=== PATIENT | female | born 1950 | race African-American/Black ===

== ENCOUNTER 2019-03-28 09:21 | Emergency (ER) | payer BC, OTHER ==
[~2019-03-28] VITALS: Ht 154.9 cm; Wt 59.0 kg
[2019-03-28 10:00] VITALS: BP 97/63
== END 2019-03-28 10:20 | disposition home or self-care (01) ==
LOC: ER 09:21
DX: H60.91 Unspecified otitis externa, right ear (principal); F12.10 Cannabis abuse, uncomplicated; Z98.890 Other specified postprocedural states
CPT/HCPCS: 99283

== ENCOUNTER 2021-02-24 10:52 | Emergency (ER) | payer OTHER, MEDICAID ==
[~2021-02-24] VITALS: Ht 152.4 cm; Wt 66.0 kg
[2021-02-24] MEDS ORDERED: IBUPROFEN 600MG TABLET PO STA (11:21)
[2021-02-24 11:51] LABS: CLARITY URINE CLEAR (CLEAR); COLOR URINE YELLOW (YELLOW); KETONES URINE NEGATIVE (NEGATIVE); LEUKOCYTE ESTERASE URINE NEGATIVE (NEGATIVE); NITRITE URINE NEGATIVE (NEGATIVE); OCCULT BLOOD URINE NEGATIVE (NEGATIVE); PROTEIN URINE NEGATIVE (NEGATIVE); SPECIFIC GRAVITY URINE 1.014 (1.005-1.030); UROBILINOGEN URINE 0.2 E.U./dL (0.2-1.0)
[2021-02-24] MEDS ORDERED: CYCL10TA7 MT (12:35)
[2021-02-24] MEDS ORDERED: IBUP-2029 MT (12:35)
[2021-02-24 13:00] VITALS: BP 118/76
== END 2021-02-24 13:03 | disposition home or self-care (01) ==
LOC: ER 10:52
DX: R07.89 Other chest pain (principal); M54.89 Other dorsalgia; R03.0 Elevated blood-pressure reading, without diagnosis of hypertension; R00.1 Bradycardia, unspecified
CPT/HCPCS: 71045; 81003; 93005; 99285